=== PATIENT | female | born 1990 | race Two or more races ===

== ENCOUNTER 2018-03-19 18:17 | Emergency (ER) | payer MEDICAID, OTHER ==
[~2018-03-19 18:17] MED LIST: HYDR-4383 PO; NITR100C6 PO; OMEP40CA37 PO
--- NOTE | 2018-03-19 20:37 | NUR ---
NO RESPONSE AFTER 3 ATTEMPTS TO TRIAGE, CALL PLACED TO NUMBER ON FILE, MESSAGE LEFT EXPRESSING CONCERN FOR PT. WELL BEING AND TO ENCOURAGE HER TO RETURN TO THE ED FOR EVAL. DR. LACEY INFORMED.
== END 2018-03-19 20:40 | disposition left against medical advice (07) ==
LOC: ER 18:17
DX: R10.9 Unspecified abdominal pain (principal); Z53.21 Procedure and treatment not carried out due to patient leaving prior to being seen by health care provider